=== PATIENT | female | born 1975 | race Caucasian/White ===

== ENCOUNTER 2020-04-21 06:02 | Observation (INO) ==
--- NOTE | 2020-03-28 15:01 | PAT Medication Instructions ---
Medication Instructions Date of Service March 28, 2020 Home Medications sertraline [Zoloft] 100 mg PO QAM copper 380 square mm intrauterine device 1 device INTRAUTERINE UD cholecalciferol (vitamin D3) [Vitamin D3] 125 mcg PO QAM levocetirizine [Xyzal] 5 mg PO QAM multivitamin 1 tab PO QAM terbinafine HCl 250 mg PO QAM Continue as directed copper 380 square mm intrauterine device 1 device INTRAUTERINE UD terbinafine HCl 250 mg PO QAM DO NOT take the morning of surgery cholecalciferol (vitamin D3) [Vitamin D3] 125 mcg PO QAM levocetirizine [Xyzal] 5 mg PO QAM multivitamin 1 tab PO QAM Take morning of surgery With a small sip of water, OTHERWISE NOTHING TO EAT OR DRINK AFTER MIDNIGHT: sertraline [Zoloft] 100 mg PO QAM Other Notes If you have any questions please call us at [phone] or [phone] or [phone] or [phone]
--- NOTE | 2020-04-02 14:10 | Anesthesiology Consultation ---
Date of Service April 02, 2020 Assessment & Plan (1) Encounter for pre-operative examination: - Per assessment on 04/02: Travel screen- Lives in [facility]. No current COVID-19 related symptoms. Patient's daughter is a [employer] college student who te sted positive for COVID 03/14. Everyone in close contact including patient quarantined and self-isolated (patient stayed at [employer] in apartment in isolation). Patient was tested and came back negative (03/19). Surgeon arranging preop COVID testing. Awaiting results. - Check test AM DOS Chart Review Chart Review: Acceptable Risk for Surgery and Patient seen in Pre Admission Testing Teaching & Discussion Pre-Anesthesia Teaching/Discussion Notes: Instructed NPO after midnight before surgery,except medications with 15 cc of water. Medication instructions p rovided according to the PAT guidelines. History Surgery Operation Date: 04/21/20 07:30 Proposed Procedures p Robotic Total Laparoscopic Hysterectomy - Jennifer Elizalde MD, FACOG Height/Weight Height: 5 ft 4 in Weight: 90.6 kg Allergies Allergy/AdvReac Type Severity Reaction Status Date / Time Penicillins Allergy Severe Anaphylaxis Verified 04/02/20 13:10 Sulfa (Sulfonamide Allergy Severe Anaphylaxis Verified 04/02/20 13:10 Antibiotics) metronidazole Allergy Intermediate Hives Verified 04/02/20 13:10 levofloxacin [From Levaquin] AdvReac Intermediate Joint Pain Verified 04/02/20 14:06 Medications Home Medications Medication Instructions Recorded Confirmed Last Taken sertraline [Zoloft] 100 mg PO QAM 03/28/19 04/02/20 04/04/19 copper 380 square mm intrauterine 1 device INTRAUTERINE UD 03/06/20 04/02/20 Unknown device cholecalciferol (vitamin D3) 125 mcg PO QAM 03/27/20 04/02/20 Unknown [Vitamin D3] levocetirizine [Xyzal] 5 mg PO QAM 03/27/20 04/02/20 Unknown multivitamin 1 tab PO QAM 03/27/20 04/02/20 Unknown terbinafine HCl 250 mg PO QAM 03/27/20 04/02/20 Unknown Past Medical History Medical History (Updated 04/02/20 @ 15:24 by Jessica Mays) Anxiety and depression Fungal toenail infection chronic, on terbinifine Hx gestational diabetes Obesity Uterine enlargement Uterine fibroid Exercise / Class Metabolic Activity II 4-5 Yardwork/Stairs/Walk up hill Past Family History Family History Mother Family history of diabetes mellitus Father Family history of diabetes mellitus Brother Family history of diabetes mellitus Grandfather (Paternal) Family hx colonic polyps Past Surgical History Surgical History H/O sinus surgery x2 History of dilatation and curettage History of esophagogastroduodenoscopy (EGD) History of tonsillectomy and adenoidectomy Hx LEEP (loop electrosurgical excision procedure), cervix, [place] teeth extracted Past Anesthesia History Other (Awareness with initial sinus surgery) History of PONV History of PONV Social History Smoking Status: Former smoker tobacco type: cigarettes Do You Dip or Chew Tobacco: No Smoking End Date: Quit 15 years ago Hx Alcohol Use: Yes Alcohol type: beer, wine and hard liquor alcohol intake frequency: holidays/special occasions only Hx Substance Use: No substance use type: does not use Review of Systems Patient denies chest pain, shortness of breath, dyspnea on exertion, joint pain, reflux, cough, wheezing, palpitations. Physical Exam Vital Signs VITALS BP 110/74 P 84 TEMP 98.6 SP02 98%RA RESP 16 PHYSICAL Full neck and c-spine range of motion. Full TMJ range of motion. TMD 3 finger breaths Mallampati Score 2 Dentition: intact Lungs: clear throughout to auscultation Cardiac: regular rate and rhythm, no murmurs noted Spine: normal Carotid arteries: negative bruit Extremities: no edema Testing Laboratory Results 04/02/20 14:51 04/02/20 14:51 Blood Type A Positive 04/02/20 14:51 Antibody Screen NEGATIVE 04/02/20 14:51
[2020-04-02 15:40] LABS: Basophils # (auto) 0.02 K/uL (0-0.2); Basophils % (auto) 0.2 %; Eosinophils # (auto) 0.14 K/uL (0-0.5); Eosinophils % (auto) 1.6 %; Hematocrit (blood only) 40.3 % (37-47); Hemoglobin 13.1 g/dL (12.0-16.0); Immature Granulocytes # (auto) 0.02 K/uL (0.00-0.02); Immature Granulocytes % (auto) 0.2 %; Lymphocytes # (auto) 1.83 K/uL (1.2-3.4); Mean Corpuscular Hemoglobin 28.9 pg (25-34); Mean Corpuscular Hgb Conc 32.5 g/dL (32-36); Monocytes # (auto) 0.78 K/uL (0.11-0.59); Monocytes % (auto) 8.9 %; Neutrophils # (auto) 5.93 K/uL (1.4-6.5); Neutrophils % (auto) 68.1 %; Platelet Count 395 K/uL (130-400); RDW Coefficient of Variation 12.5 % (11.5-14.5); RDW Standard Deviation 39.8 fL (36.4-46.3); Red Blood Count 4.53 M/uL (4.2-5.4); White Blood Count 8.72 K/uL (4.8-10.8)
[2020-04-02 15:52] LABS: BUN Creatinine Ratio 17.6 (10-20); Calcium 9.5 mg/dl (8.5-10.1); Creatinine Clr Calc Pharmacy 98.9 ml/min; Est GFR (African American) 104.7; Est GFR (Non-African American) 90.3; Potassium 4.1 mmol/L (3.5-5.1)
[~2020-04-21 06:02] MED LIST: CLINDAMYCIN 600 MG/54 ML BAG IV SCH; DEXTROSE 5% IV SCH; GENTAMICIN SULFATE IV SCH; LR 15ML/HR IV SCH; metroNIDAZOLE 500 MG/100 ML BAG IV SCH
[2020-04-21] MEDS ORDERED: BUPIVACAINE 0.5 % 5 MG/1 ML MPF 30ML VIAL ONE (07:00)
[2020-04-21] MEDS ORDERED: ONDANSETRON INJ 2 MG/ML 2 ML VIAL ONE ×2 (07:04→08:07)
[2020-04-21] MEDS ORDERED: DEXAMETHASONE SOD INJ 4 MG/ML VIAL ONE (07:04)
[2020-04-21] MEDS ORDERED: PROPOFOL IV EMULSION 10 MG/ML 20 ML VIAL IV ONE (07:04)
[2020-04-21] MEDS ORDERED: LIDOCAINE HCL 2% 2 ML VIAL/AMP(20MG/ML) INFIL ONE (07:04)
[2020-04-21] MEDS ORDERED: NEOSTIGMINE METHYLSULFATE 5 MG/5 ML SYR ONE (07:04)
[2020-04-21] MEDS ORDERED: GLYCOPYRROLATE 0.2 MG/ML VIAL ONE ×2 (07:04→08:07)
[2020-04-21] MEDS ORDERED: MIDAZOLAM HCL 1 MG/ML 2ML VIAL ONE (07:04)
[2020-04-21] MEDS ORDERED: fentaNYL citrate 100 MCG/2 ML VIAL ONE ×2 (07:04→09:22)
[2020-04-21] MEDS ORDERED: HYDROmorphone INJ 2 MG/ML SYR/VIAL IV PRN (07:05)
[2020-04-21] MEDS ORDERED: ONDANSETRON INJ 2 MG/ML 2 ML VIAL IV PRN ×2 (07:05→11:33)
[2020-04-21] MEDS ORDERED: ATROPINE SULFATE 0.1 MG/ML 10ML SYR IV PRN (07:05)
[2020-04-21] MEDS ORDERED: PROMETHAZINE HCL 6.25 MG in SODIUM CHLORIDE 0.9% 50 ML IV PRN (07:05)
[2020-04-21] MEDS ORDERED: fentaNYL citrate 100 MCG/2 ML VIAL IV PRN (07:05)
[2020-04-21] MEDS ORDERED: ePHEDrine sulfate 50 MG/ML AMP IV PRN (07:05)
[2020-04-21] MEDS ORDERED: SCOPOLAMINE 1 MG TDSY TD ONE ×2 (07:06→07:07)
--- NOTE | 2020-04-21 07:11 | History & Physical Bridge Note ---
Date of Service April 21, 2020 History & Physical Bridge Note I have examined the patient, reviewed the History & Physical and in the interval since the performance of the History & Physical I have noted the following changes of clinical significance: no changes noted
[2020-04-21] MEDS ORDERED: CHECK SCOPOLAMINE PATCH PLACEMENT SCH (08:00)
[2020-04-21] MEDS ORDERED: LARYING-O-JET KIT (LTA) ONE (08:07)
[2020-04-21] MEDS ORDERED: ROCURONIUM BROMIDE 10 MG/ML 5 ML VIAL IV ONE (08:07)
[2020-04-21] MEDS ORDERED: ePHEDrine sulfate 50 MG/ML SYR ONE (08:07)
[2020-04-21] MEDS ORDERED: PHENYLEPHRINE 100MCG/ML 5ML SYR ONE (08:07)
[2020-04-21] MEDS ORDERED: TISSEEL FIBRIN SEALANT 4ML TOP ONE (08:32)
--- NOTE | 2020-04-21 09:48 | Operative Report ---
PG Post Operative Report Pre & Post Diagnosis Operation Date: 04/21/20 07:30 Pre-Op Diagnosis: Enlarged Uterus greater then 250 grams and Menorrhagia Post-Op Diagnosis: Enlarged Uterus greater then 250 grams and Menorrhagia I identified the patient and participated in the time-out.: Yes Procedure Operation Date: 04/21/20 07:30 Actual Procedures p Robotic Total Laparoscopic Hysterectomy with Bilateral Salpingectomy, and Cystoscopy(Not Applicable) - Jennifer Elizalde MD, FACOG Surgeon Jennifer Elizalde MD, FACOG Health Education Director . Estimated Blood Loss 20 Findings Consistent with Post-Op Diagnosis Specimens Uterus cervix bilateral fallopian tubes Description of Procedure Patient was given a general anesthetic, prepped and draped in dorsal lithotomy position in yellow fin emilie stirrups. Care was taken to position the legs and arms properly with no excess pressure on any area. Pre-operative antibiotics were given and SCDs applied earlier. Alejo catheter was inserted into her bladder, V-Care manipluator was placed in the uterus and sutured in place. Gloves were changed and then a supra-umbilical incision was made with scalpel, using Samuel technique, we dissected through the subcutaneous fat, fascia, split the rectus muscles and then entered the peritoneal cavity.. Blunt tip Samuel Trochar then inserted and balloon inflated to stabilize the port. CO2 gas was then used to insufflate the peritoneal cavity. Findings. Normal adnexa enlarged uterus consistent with the ultrasound reports minimal adhesions on the right pelvis otherwise normal Deep tendelenberg position was obtained. 2 robotic ports were then placed, one on the left, one on the right side under direct visualization. 11mm bladeless accessory port placed in left upper quadrant under direct visualization. Robot docked. Arm #1 Monopolar danny, arm #2 Bipolar [place] grasper. Fallopian tubes were identified and removed with the monoplar danny and removed thru the accessory port. Ureter was identified on each side and followed a normal course. Distal to the left ovary, the blood supply was coagulated with the bipolar [place] and then cut with Danny. We were well away from the ureter. Round ligament was coagulated and then cut. Uterine vessels were then skeletonized, bladder flap was sharply dissected away with danny. Uterine vessels were then coagulated close to the cervix staying away from the left ureter. Vessels then cut. The exact same process was repeated on the right side taking note of the location of the right ureter at all times. Colpotomy was then performed with the monopolar danny, once completed, the specimen was removed through the vagina. A sponge in a glove was then placed in the vagina to maintain pneumoperitoneum. Instrument exchange then occurred. 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 12 inch 2-0 V-Lock 90 day suture was placed through the accessory port. Cuff was closed from left to right, then back taking at least 1cm full thickness bites of vaginal mucosa. Suture was cut so there was no tail, needle removed through the accessory port. Sponge removed from the vagina and seal air tight. Generous irrigation and suction, hemostasis excellent, Tisseal applied to pedicles. Cystoscopy performed and no injury to the bladder, no sutures noted, good strong jets of blue colored dye were noted from both right and left ureter openings. Cystoscope removed and a new alejo catheter placed. Additionally we ended up using a third catheter because we had pulled out the first catheter to allow removal of the enlarged uterus with the vagina and placed another one in place. This catheter was then removed for cystoscopy and the and then the third catheter was placed and afterwards urine was clear at the end of the procedure Robot undocked, instruments, ports removed. gas allowed to escape. Incisions injected with Marcaine, fascia closed in the umbilical and a deep stitch into the accessory port with 0-Vicryl. 4-0 subcuticular skin closures on all incisions, dermabond apllied. Sponge and instrument counts correct. I attest to the content of the Intraoperative Record and any orders documented therein. Any exceptions are noted below. Procedure Pre-op/Post-op diagnoses: Pre-Op/Post-Op Diagnoses Operation Date: 04/21/20 07:30 Pre-Op Diagnosis: Enlarged Uterus greater then 250 grams and Menorrhagia Post-Op Diagnosis: Enlarged Uterus greater then 250 grams and Menorrhagia Procedure: Procedures Operation Date: 04/21/20 07:30 Actual Procedures Side Surgeon p Robotic Total Laparoscopic Hysterectomy with Bilateral Salpingectomy, and Cystoscopy Note uterus >250g Not Applicable Jennifer Elizalde MD, FACOG
--- NOTE | 2020-04-21 10:02 | Anesthesiology Progress Note ---
Date of Service April 21, 2020 Anesthesia Post Procedure Vital Signs Vital Signs: Temp Pulse Pulse Resp BP BP Pulse Ox 04/21/20 09:55 107 H 18 121/59 L 97 04/21/20 09:46 37.2 C 105 H 16 123/51 L 97 04/21/20 06:48 36.9 C 81 18 125/73 97 Transfer of Care Handoff Completed per policy Notes Mental Status: alert / awake / arousable Patient Amnestic to Procedure: Yes Nausea / Vomiting: adequately controlled Pain: adequately controlled Airway Patency, RR, SpO2: stable & adequate BP & HR: stable & adequate Hydration State: stable & adequate Anesthetic Complications: no major complications apparent
[2020-04-21] MEDS ORDERED: ZOLPIDEM TARTRATE 5 MG TAB PO PRN (11:33)
[2020-04-21] MEDS ORDERED: IBUPROFEN 600 MG TAB PO PRN (11:33)
[2020-04-21] MEDS ORDERED: MAGNESIUM HYDROXIDE SUSP 30 ML UDC PO PRN (11:33)
[2020-04-21] MEDS ORDERED: ACETAMINOPHEN 325 MG TAB PO PRN (11:33)
[2020-04-21] MEDS ORDERED: LACTATED RINGER'S 1,000 ML IV SCH (11:33)
[2020-04-21] MEDS ORDERED: oxyCODONE/ACETAMINOPHEN 5mg/325mg TAB PO PRN (11:33)
[2020-04-21] MEDS ORDERED: PROMETHAZINE HCL 12.5 MG in SODIUM CHLORIDE 0.9% 50 ML IV PRN (11:33)
[2020-04-21] MEDS ORDERED: MEPERIDINE HCL 50 MG/ML CARP IV PRN (11:33)
[2020-04-21] MEDS ORDERED: bisacodyL 10 MG SUPP PR PRN (11:33)
[2020-04-21] MEDS ORDERED: KETOROLAC 30 MG/ML VIAL IV PRN (11:33)
[2020-04-21] MEDS ORDERED: XYZAL ~ ORDER AWAITING ACTION SCH (16:00)
[2020-04-21] MEDS ORDERED: DOCUSATE SODIUM 100 MG CAP PO SCH (21:00)
[2020-04-22] MEDS ORDERED: CHOLECALCIFEROL 1,000 UNITS 25 MCG TAB PO SCH (09:00)
[2020-04-22] MEDS ORDERED: terbinafine HCL 250 MG TAB PO SCH (09:00)
[2020-04-22] MEDS ORDERED: SERTRALINE HCL 100 MG TABLET PO SCH (09:00)
--- NOTE | 2020-04-25 07:21 | Discharge Summary ---
Date of Service April 25, 2020 Discharge Data Procedures Performed Operation Date: 04/21/20 07:30 Actual Procedures p Robotic Total Laparoscopic Hysterectomy with Bilateral Salpingectomy, and (Not Applicable) - Jennifer Elizalde MD, [facility] s Cystoscopy(Not Applicable) - [facility] (1) Menorrhagia: on the morningPatient had a total laparoscopic hysterectomy at that time she was ambulating well tolerating an oral diet her pain was well controlled she had no extremity pain she had no bleeding she was discharged home several hours later at approximately 2 PM and discharge instructions were reviewed with the patient patient was advised to call with any concerns she met discharge criteria including limitations on lifting and follow-up in the office was discussed within a few hours after surgery Coding Level of Care Code None Diagnoses Menorrhagia N92.0
== END 2020-04-21 14:15 | disposition home or self-care (01) ==
LOC: 4S2 06:02 → ASU 06:02